=== PATIENT | male | born 1990 | race African-American/Black ===

== ENCOUNTER 2024-12-18 08:45 | Outpatient (AMB) | payer OTHER, SELFPAY ==
--- NOTE | 2024-12-18 08:47 | MHC.PC.OV ---
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: patient here for new patient visit Supervisor Electron Tube Processing Required: No Allergies No Known Allergies Allergy (Verified 12/18/24 09:09) Medication List - Last Reconciled 12/18/24 by Karla Torres CNP No Known Home Meds Tobacco use date assessed: 12/18/24 Dental Screening Dental Screen Date: 12/18/24 Did you have a dental visit in the last 12 months?: No Did you have a dental problem in the last 6 months where you did not have access to dental care?: No Was dental information given to patient?: Yes HPI HPI Comments History of Present Illness Details 34-year-old male presents to [facility]. He relocated from [facility] to [facility] in 04/2024. Prior PCP? - In [facility] Last office visit/CPE/labs - 1 year ago Acute issue(s) - None Past Medical History - None Surgical History - None Family History - Dad: HTN, cardiovascular disease - Mom: HTN - MGM: Dementia - MGF: Dementia Social History - Nonsmoker. Does not vape. Drinks occasionally, drank 1 beer 8 mos ago. Denies recreational drug use - Has been making healthy dietary choices. Exercises routinely. Generally sleep well Health maintenance - Last eye exam was 1 year ago. Referred to Ophthalmology for routine eye care - Last dental visit was 2 years ago; encouraged to schedule an appointment with his dentist for routine dental care - Last tetanus vaccine was 3 months ago. Record not currently available - Has not been vaccinated for the flu this season; declines vaccination PFSH Family History (Updated 12/18/24 @ 09:38 by Noy Acuña MA) Maternal Grandfather FH: mental illness Dementia Maternal Grandmother FH: mental illness Dementia Mother High blood pressure Father High blood pressure Cardiovascular disease Brother Brain cancer Social History Housing: House Patient Tobacco Use Status: Never used Tobacco e-Cigarette/Vaping Use: Never Used Second Hand Smoke Exposure: No service: No Current occupational status: employed Current occupation: [employer] Current occupational exposures/hazards: Yes Cognitive needs: No Hearing needs: No Vision needs: No Questionnaire PHQ-9 Over the last 2 weeks, how often have you been bothered by any of the following problems? 1. Little interest or pleasure in doing things: not at all 2. Feeling down, depressed, or hopeless: not at all 3. Trouble falling or staying asleep, or sleeping too much: not at all 4. Feeling tired or having little energy: not at all 5. Poor appetite or overeating: not at all 6. Feeling bad about yourself - or that you are a failure or have let yourself or your family down: not at all 7. Trouble concentrating on things, such as reading the newspaper or watching television: not at all 8. Moving or speaking so slowly that other people could have noticed. Or the opposite - being so fidgety or restless that you have been moving around a lot more than usual: not at all 9. Thoughts that you would be better off or of hurting yourself in some way: not at all Total score: 0 Depression Screening Interpretation: Negative Depression Screening Done: Yes 72976 - PHQ-9 Billing: Yes Source: Developed by Drs. Shahram Portillo, Paz Price, Rian Rogers and colleagues, with an educational heidi from [employer]. Thrive Questionnaire Date Thrive assessed: 12/18/24 I am a: Patient What is your living situation today?: I have a steady place to live Within the past 12 months, did the food you bought not last and you didn't have the money to get more?: Never true Within the past 12 months, did you worry whether your food would run out before you got money to buy more?: Never true Do you have trouble paying for medicines?: No Do you have trouble getting transportation to medical appointments?: No Do you have trouble paying your heating and electricity bill?: No Do you have trouble taking care of your child, family member or friend?: No Do you have trouble with day-to-day activities such as bathing, preparing meals, shopping, managing finances, etc.?: No Are you currently unemployed and looking for a job?: No Are you interested in more education?: Yes Please select the resources that you would like help with: Transportation and Education Currently or been in a relationship where the following occur: No concerns reported THRIVE Score: 0 AUDIT C Alcohol Use Questionnaire (AUDIT-C) 1. How often do you have a drink containing alcohol?: Monthly or less 2. How many drinks containing alcohol do you have on a typical day when you are drinking?: 1 or 2 3. How often do you have six or more drinks on one occasion?: Never Total Score: 1 Score Reviewed/Action Taken: Yes KARLI-7 AMB Questionnaire KARLI-7 Date KARLI - 7 assessed: 12/18/24 Feeling nervous, anxious, or on edge: 0 = Not at all Not being able to stop or control worryin = Not at all Worrying too much about different things: 0 = Not at all Trouble relaxin = Not at all Being so restless that it is hard to sit still: 0 = Not at all Becoming easily annoyed or irritable: 0 = Not at all Feeling afraid as if something awful might happen: 0 = Not at all Total KARLI-7 score (0-4 normal; 5-9 mild; 10-14 moderate; 15-21 severe): 0 Source: Developed by Drs. Shahram Portillo, Paz Price, Rian Rogers and colleagues, with an educational heidi from [employer]. KARLI-7 Assessment Billing KARLI-7 Assessment Tool: KARLI-7 Assessment 44553 Review of Systems Const Details: Denies chills, Denies fatigue, Denies fever(s), Denies headache(s) and Denies weakness HEENT Denies change in vision, Denies dizziness, Denies headache(s), Denies hearing loss, Denies nasal congestion, Denies sinus pain, Denies sinus pressure and Denies sore throat Card Denies chest pain, Denies lightheadedness, Denies dyspnea and Denies other (palpitations) Resp Denies cough, Denies dyspnea and Denies wheezing GI Denies abdominal pain, Denies melena, Denies hematochezia, Denies change in bowel habits, Denies dyspepsia and Denies nausea Denies hematuria and Denies dysuria Musc Denies abnormal gait, Denies myalgias, Denies arthralgias, Denies numbness and Denies tingling Skin/Breast Denies rash, Denies unusual bruising and Denies wounds Neuro Denies abnormal gait, Denies dizziness, Denies headache(s), Denies memory loss, Denies numbness, Denies Sensory deficit (Neuro), Denies tingling and Denies weakness Psych Denies anxiety, Denies depression and Denies memory loss Endo Denies cold intolerance, Denies fatigue, Denies heat intolerance, Denies polydipsia and Denies polyuria Sp/Lymph Denies easy bleeding and Denies easy bruising Aller/Immun Denies wheezing Physical exam (Primary Care) Vital Signs: Last Vital Signs Temp 97.4 F 12/18/24 08:55 Pulse 72 12/18/24 08:55 Resp 16 12/18/24 08:55 BP 114/60 12/18/24 08:55 Pulse Ox 100 12/18/24 08:55 Oxygen Delivery Method Room Air 12/18/24 08:55 BMI result Body Mass Index 28.9 Tobacco/Smoking Status: Tobacco use Status Tobacco use date assessed 12/18/24 12/18/24 08:54 Patient Tobacco Use Status Never used Tobacco 12/18/24 08:54 e-Cigarette/Vaping Use Never Used 12/18/24 08:54 PHQ-9: PHQ-9 Score PHQ-9: Total score 0 12/18/24 09:14 Depression Screening Interpretation: Negative Thrive Assessment: Date of Thrive Assessment Date Thrive assessed 12/18/24 12/18/24 08:50 Currently or been in a relationship where the following occur: No concerns reported Const Other: General: no acute distress, well developed, alert and awake Nutritional Appearance: well nourished Orientation/consciousness: patient oriented x3 HENMT Head: Yes normocephalic and Yes atraumatic Ears: hearing grossly normal bilaterally and TM's normal bilaterally General nose exam: Normal external nose present and Normal nares present Mouth: Normal oral and palatal mucosa present and moist mucous membranes Teeth and gingiva: dentition normal Throat: Yes oropharynx normal Eyes Pupils: Equal, round and reactive pupils present and Pupil accommodation reflex normal EOM: EOMs intact bilaterally Neck Neck: Yes normal visual inspection, Yes no lymphadenopathy and Yes trachea midline Thyroid: Thyroid normal Carotids: no bruits Lymphatic: no lymphadenopathy noted Chest Chest palpation & inspection: normal inspection of the chest Resp Effort & Inspection: normal respiratory effort Auscultation: clear to auscultation bilaterally Cardio Rate: regular rate Rhythm: regular rhythm Heart sounds: S1 normal heart sound present, S2 normal heart sound present, no gallops, no murmurs and no rubs Bruits: no abdominal aortic bruits and no carotid bruits GI Palpation (GI): No Abdominal aortic bruit present, Soft to palpation, nontender, No hepatosplenomegaly present and No Rebound tenderness present Auscultation: normal bowel sounds General: Yes no CVA tenderness Back/Spine/Pelvis Back: no CVA tenderness Cervical Spine: cervical ROM normal and No Cervical spine tenderness Thoracic/Lumbar Spine: thoraco-lumbar ROM normal, No pain with thoraco-lumbar ROM, No thoracic spinal tenderness and No lumbar spinal tenderness Skin General: warm and dry. Normal skin color. Normal skin turgor Lesions: no lesions Rashes: no rashes Trauma: no lacerations or abrasions Wounds: no wounds Nails: normal Neuro General: patient oriented x3, gait normal and CN's II-XI intact bilaterally Cranial nerves: Yes Equal, round and reactive pupils present Cognition (Neuro): normal cognition Gait exam (Neuro): Normal gait present Motor exam (neuro): 5/5 motor strength present throughout Sensory Exam: No Sensory deficit (Neuro) Deep tendon reflexes (DTR's): Right patellar reflex intensity grade: 2+ and Left patellar reflex intensity grade: 2+ Extrem General: Yes normal to inspection, No edema and No calf tenderness Psych Appearance: grossly normal Affect: normal affect Attitude: cooperative Thought process: Normal thought process present Coding Level of Care Code New Pt Prev Care 18-39yr(18808 Diagnoses Normal physical examination, routine Z00.00 Eye exam, routine Z01.00 Laboratory tests ordered as part of a complete physical exam (CPE) Z00.00 Additional Codes KARLI-7 Assessment Billing - KARLI-7 Assessment Tool: KARLI-7 Assessment 98183 ([id number]) PHQ-9 - 36471 - PHQ-9 Billing: Yes ([id number]) Assessment & Plan Assessment & Plan (1) Normal physical examination, routine: Code(s): Z00.00 - Encounter for general adult medical examination without abnormal findings Category: Medical Plan: No significant functional limitation. Healthy diet and routine exercise encouraged. Advised to get lab work done and follow-up in 2-3 weeks for telehealth visit for labs review. Return sooner with symptoms or concerns. Verbalized understanding and agreed with treatment plan. (2) Eye exam, routine: Code(s): Z01.00 - Encounter for examination of eyes and vision without abnormal findings Category: Medical Plan: Last eye exam was 1 year ago. Referred to Ophthalmology for routine eye care. (3) Laboratory tests ordered as part of a complete physical exam (CPE): Code(s): Z00.00 - Encounter for general adult medical examination without abnormal findings Category: Medical Plan: Fasting labs ordered as part of a complete physical exam. Advised to fast for at least 10 hours before getting labs drawn. May drink water Verbalized understanding and agreed with treatment plan. Orders: Orders Lipid Panel Today Z00.00 - Encounter for general adult medical examination without abnormal findings Microalbumin, Random (w Creat) Today Z00.00 - Encounter for general adult medical examination without abnormal findings Complete Blood Count Auto Diff Today Z00.00 - Encounter for general adult medical examination without abnormal findings Comprehensive [place]. Panel Fast Today Z00.00 - Encounter for general adult medical examination without abnormal findings TSH reflex Free T4 Today Z00.00 - Encounter for general adult medical examination without abnormal findings UA CC w/rflx Micro + Cult Today Z00.00 - Encounter for general adult medical examination without abnormal findings Vitamin D 25-OH Total Today Z00.00 - Encounter for general adult medical examination without abnormal findings Referrals Ophthalmology Referral Z01.00 - Encounter for examination of eyes and vision without abnormal findings
[2024-12-18 08:55] VITALS: BP 114/60; PULSE 72; RESP 16; TEMP 36.3; O2SAT 100; BMI 28.9
--- OUTSIDE RECORDS SUMMARY | 2024-12-18 09:10 | XMS_ITS | Clinical Summary ---
Author Organization [address] Address [address] [place] [phone] Care Team Providers Care Cash Analyst Name Role Phone Pcp, Does Not Have A Primary Care Provider Unava ilable Allergies No known active allergies Medications No known medications Active Problems Problem Noted Date Diagnosed Date PPD negative 07/25/2024 Immunizations Name Administration Dates Next Due TB Screening (PPD/Quantiferon) 07/23/2024 Social History Tobacco Use Types Packs/Day Years Used Date Smoking Tobacco: Never Smokeless Tobacco: Never Tobacco Cessation:Counseling Given: Not Answered Alcohol Use Standard Drinks/Week Comments Not Currently 0 (1 standard drink = 0.6 oz pur e alcohol) Sex and Gender Information Value Date Recorded Sex Assigned at Not on file Legal Sex Male 5:30 PM EST Gender Identity Not on file Sexual Orientation Not on file Last Filed Vital Signs Vital Sign Reading Time Taken Comments Blood Pressure 150/77 07/25/2024 11:47 AM EST Pulse 71 07/25/2024 11:47 AM EST Temperature 36.9 ??C (98.5 ??F) 07/25/2024 11:[address] Respiratory Rate 16 07/25/2024 11:47 AM EST Oxygen Saturation 99% 07/25/2024 11:47 AM EST Inhaled Oxygen Concentration - - Weight 95.3 kg (210 lb) 07/25/2024 11:47 AM EST Height - - Body Mass Index - - Plan of Treatment Health Maintenance Due Date Last Done Comments HIV screening 2005 Hepatitis C screening 2010 Tetanus adult (Td q 10,TDAP once) 2012 Influenza vaccine 04/19/2024 Covid-19 vaccine series ( season) 2024 RSV Immunization (1 - 1-dose 75+ series) 2067 Meningococcal Vaccine Aged Out No leslie flavia eligible based on patient's age to complete this topic Pneumococcal Vaccine (2 - 49 years) Aged Out No longer eligible based on patient's age to complete this topic Insurance [id number] MEDICAID [id number] MEDICAID [id number] MEDICAID Care Teams Cash Analyst Relationship Specialty Start Date End Date Pcp, Does Not Have A PCP - General 07/23/24
== END 2024-12-18 09:33 | disposition home or self-care (01) ==
LOC: HO.HMCFM 08:46
PROVIDERS: PCP Internal Medicine; Visit Provider Nurse Practitioner Family
DX: Z00.00 Encounter for general adult medical examination without abnormal findings (principal); Z01.00 Encounter for examination of eyes and vision without abnormal findings

== ENCOUNTER → 2024-12-18 08:45 | Outpatient (BNVA) | payer OTHER, SELFPAY | PROVIDERS: PCP Internal Medicine; Visit Provider Nurse Practitioner Family | DX: Z00.00 Encounter for general adult medical examination without abnormal findings (principal) | CPT/HCPCS: 96127; 99385 ==

== ENCOUNTER 2024-12-18 09:38 | Outpatient (REF) | payer OTHER, SELFPAY ==
--- OUTSIDE RECORDS SUMMARY | 2024-12-18 11:00 | XMS_ITS | Clinical Summary ---
Author Organization [address] Address [address] [place] [phone] Care Team Providers Care Edge Banding Off Bearer Name Role Phone Pcp, Does Not Have [...] patient's age to complete this topic Insurance [id number] MEDICAID [id number] MEDICAID [id number] MEDICAID Care Teams Edge Banding Off Bearer Relationship Specialty Start Date End Date Pcp, Does Not Have A PCP - General 07/23/24
[2024-12-18 11:31] LABS: Hematocrit 46.4 % (42.0-52.0); Hemoglobin 15.3 g/dl (14.0-18.0); Imm Gran Abs Auto 0.01 X10*3/uL (0.00-0.03); Imm Gran Pct Auto 0.2 % (0.0-0.4); Lymphocytes Absolute Auto 2.8 X10*3/uL (1.2-4.9); Lymphocytes Percent Auto 67.1 % (20-40); MANUAL DIFF FLAG SCAN; Mean Corpuscular Hemoglobin 27.1 pg (27.0-33.0); Mean Corpuscular Volume 82.3 fL (80.0-98.0); Mean Platelet Volume 8.9 fL (9.4-12.4); Monocytes Absolute Auto 0.4 X10*3/uL (0.1-1.2); Monocytes Percent Auto 8.8 % (2-11); Neutrophils Absolute Auto 0.9 x10*3/uL (2.0-8.3); Neutrophils Percent Auto 21.9 % (45-73); Platelet Count 332 X10*3/uL (160-400); Red Blood Count 5.64 X10*6/uL (4.60-5.80); Red Cell Distribution Width 13.8 % (11.0-16.0); SCAN SMEAR FLAG 1; White Blood Count 4.2 X10*3/uL (4.8-10.8)
[2024-12-18 11:32] LABS: Appearance Urine Clear; Color Urine Yellow; Glucose Urine UA Negative (Negative); Leukocyte Esterase Urine Negative (Negative); Nitrite Urine Negative (Negative); PH 6.5 (5.0-9.0); Urine Blood Negative (Negative); Urine Ketones Negative (Negative); Urine Protein Negative (Neg-Trace)
[2024-12-18 12:01] LABS: Creatinine Urine 162.88 mg/dL; Microalbumin Urine < 5.0 mg/L
[2024-12-18 12:09] LABS: SLIDE REVIEW VERIFIED
[2024-12-18 12:15] LABS: Alanine Aminotransferase 26 U/L (0-40); Albumin Level 4.5 g/dL (3.5-5.0); Alkaline Phosphatase 46 U/L (39-117); Anion Gap 9 (12-20); Aspartate Amino Transferase 25 U/L (5-37); Bilirubin Total 0.6 mg/dL (0.0-1.0); Blood Urea Nitrogen 14 mg/dL (9-16); Carbon Dioxide 30 mmol/L (22-29); Chloride 106 mmol/L (96-108); Cholesterol 126 mg/dL (<200); Estimated Glomerular Filt Rate > 60; Glucose Fasting 105 mg/dL (60-99); HDL Cholesterol 53 mg/dL (>40); LDL Cholesterol Calculated 59 mg/dL (<100); Potassium 4.2 mmol/L (3.3-5.1); Sodium 141 mmol/L (135-145); Total Protein 7.7 g/dL (6.5-8.0); Triglycerides 74 mg/dL (<150); Vitamin D 25-OH Total 84.1 ng/mL (>30)
== END 2024-12-18 09:39 | disposition home or self-care (01) ==
LOC: HO.WFDLDS 09:38
PROVIDERS: Visit Provider Nurse Practitioner Family
DX: Z00.00 Encounter for general adult medical examination without abnormal findings (principal)
CPT/HCPCS: 36415; 80053; 80061; 81003; 82043; 82306; 82570; 84443; 85025

== ENCOUNTER 2025-01-01 12:26 | Outpatient (AMB) | payer OTHER, SELFPAY ==
--- NOTE | 2025-01-01 12:23 | MHC.PC.OV ---
Intake Visit Reasons: Telehealth 2-3 weeks labs review Intake Note: patient here for 2-3 wks follow up on lab review Windows Support Engineer Required: No Allergies No Known Allergies Allergy (Verified 01/01/25 12:33) Medication List - Last Reconciled 01/01/25 by Karla Torres CNP No Known Home Meds Tobacco use date assessed: 01/01/25 Dental Screening Dental Screen Date: 01/01/25 Did you have a dental visit in the last 12 months?: No Did you have a dental problem in the last 6 months where you did not have access to dental care?: No Was dental information given to patient?: No HPI HPI Comments History of Present Illness Details 34-year-old presents for telehealth visit for review of recent lab results. He offers no complaints and denies acute symptoms at this time. [facility] Family History (Updated 12/18/24 @ 09:38 by Noy Acuña MA) Maternal Grandfather FH: mental illness Dementia Maternal Grandmother FH: mental illness Dementia Mother High blood pressure Father High blood pressure Cardiovascular disease Brother Brain cancer Social History Housing: House Patient Tobacco Use Status: Never used Tobacco e-Cigarette/Vaping Use: Never Used Second Hand Smoke Exposure: No service: No Current occupational status: employed Current occupation: [employer] Current occupational exposures/hazards: Yes Cognitive needs: No Hearing needs: No Vision needs: No Questionnaire Thrive Questionnaire Date Thrive assessed: 12/18/24 KARLI-7 AMB Questionnaire KARLI-7 Date KARLI - 7 assessed: 12/18/24 Source: Developed by Drs. Shahram Portillo, Paz Price, Rian Rogers and colleagues, with an educational heidi from [employer]. Review of Systems Const Details: Denies chills, Denies fatigue, Denies fever(s), Denies headache(s) and Denies weakness Cardiac Denies chest pain, Denies claudication, Denies leg edema, Denies lightheadedness, Denies palpitations, Denies dyspnea, Denies dyspnea on exertion, Denies orthopnea and Denies other (Loss of consciousness) Resp Denies cough, Denies excessive phlegm production, Denies dyspnea, Denies dyspnea on exertion, Denies snoring and Denies wheezing Physical exam (Primary Care) Tobacco/Smoking Status: Tobacco use Status Tobacco use date assessed 01/01/25 01/01/25 12:25 Patient Tobacco Use Status Never used Tobacco 01/01/25 12:25 e-Cigarette/Vaping Use Never Used 01/01/25 12:25 Thrive Assessment: Date of Thrive Assessment Date Thrive assessed 12/18/24 01/01/25 12:25 Const Other: Patient is alert and oriented x3. Telehealth Telehealth Telehealth Platform: Telephone Location of provider rendering services: practice address Location of patient: address on file Patient Identification confirmed using: Name, : Yes Telehealth method: voice only Patient verbally consented to treatment: Yes Patient verbally consented to billing insurance company: Yes Patient informed of any privacy concerns related to visit: Yes Coding Level of Care Code Tele Est Pt Level 3 (91701) Diagnoses Elevated fasting glucose R73.01 Leukopenia D72.819 Time Spent (min) 10 Assessment & Plan Assessment & Plan (1) Elevated fasting glucose: Code(s): R73.01 - Impaired fasting glucose Category: Medical Plan: Recent fasting glucose is slightly elevated, 105. Will recheck fasting glucose and make changes as needed. Follow-up for a telehealth visit in 2 weeks. Return sooner with symptoms or concerns. Verbalized understanding and agreed with the plan. (2) Leukopenia: Code(s): D72.819 - Decreased white blood cell count, unspecified Category: Medical Plan: Recent WBC is slightly low, 4.2, equivocal. Will check vitamin B12 and folate levels. Follow-up in 2 weeks. Orders: Orders Glucose Fasting Today R73.01 - Impaired fasting glucose Vitamin B12 and Folate Today D72.819 - Decreased white blood cell count, unspecified
--- OUTSIDE RECORDS SUMMARY | 2025-01-01 15:14 | XMS_ITS | Clinical Summary ---
Author Organization [address] Address [address] [place] [phone] Care Team Providers Care Pt Escort Name Role Phone Pcp, Does Not Have [...] Tetanus adult (Td q 10,TDAP once) 2012 Covid-19 vaccine series ( season) 2024 Influenza vaccine 05/20/2025 RSV Immunization (1 - 1-dose 75+ series) 2067 Meningococcal Vaccine Aged Out No leslie flavia eligible based on patient's age to complete this topic Pneumococcal Vaccine (2 - 49 years) Aged Out No longer eligible based on patient's age to complete this topic Insurance [id number] MEDICAID [id number] MEDICAID [id number] MEDICAID Care Teams Pt Escort Relationship Specialty Start Date End Date Pcp, Does Not Have A PCP - General 07/23/24
--- OUTSIDE RECORDS SUMMARY | 2025-01-01 15:14 | XMS_ITS ---
Author Name [facility] Organization Unknown Problems Problem Status Onset Date Problem Type Date of Resoluti on Source PPD negative active 2024-07-25 ProblemAct CT_YA LEUC Immunizations Vaccine Date Source Lot Number Status TB Screening (PPD/Quantiferon) 07/23/2024 CT_YALEUC [id number] C1 completed Encounters Encounter Type Encounter Reason Primary Diagnosis Location Date Ambulatory Reserved for non-ICD9 billable problem concepts Reserved for non-ICD9 billable problem concepts [facility] 07/25/2024 Ambulatory Screening examination for pulmonary tuberculosis [facility] for [facility] Care Team Organization Name Specialty Phone Email Start Date End Dmitriy mireles [facility] 07/23/2024
== END 2025-01-01 12:50 | disposition home or self-care (01) ==
LOC: HO.HMCFM 12:26
PROVIDERS: PCP Nurse Practitioner Family; Visit Provider Nurse Practitioner Family
DX: R73.01 Impaired fasting glucose (principal); D72.819 Decreased white blood cell count, unspecified

== ENCOUNTER → 2025-01-01 12:26 | Outpatient (BNVA) | payer OTHER, SELFPAY | PROVIDERS: PCP Nurse Practitioner Family; Visit Provider Nurse Practitioner Family ==

== ENCOUNTER 2025-01-15 11:21 | Outpatient (REF) | payer OTHER, SELFPAY ==
--- OUTSIDE RECORDS SUMMARY | 2025-01-15 13:24 | XMS_ITS | Clinical Summary ---
Author Organization [address] Address [address] [place] [phone] Care Team Providers Care Director Radiation Oncology Name Role Phone Pcp, Does Not Have [...] patient's age to complete this topic Insurance [id number] MEDICAID [id number] MEDICAID [id number] MEDICAID Care Teams Director Radiation Oncology Relationship Specialty Start Date End Date Pcp, Does Not Have A PCP - General 07/23/24
[2025-01-15 14:37] LABS: Glucose Fasting 99 mg/dL (60-99)
[2025-01-15 15:15] LABS: Folate 12.8 ng/mL (> or = 4.0); Vitamin B12 1261 pg/mL (200-900)
== END 2025-01-15 11:22 | disposition home or self-care (01) ==
LOC: HO.WFDLDS 11:21
PROVIDERS: Visit Provider Nurse Practitioner Family
DX: R73.01 Impaired fasting glucose (principal); D72.819 Decreased white blood cell count, unspecified
CPT/HCPCS: 36415; 82607; 82746; 82947